=== PATIENT | female | born 1965 | race Caucasian/White ===

== ENCOUNTER 2018-12-03 04:44 | Emergency (ER) | payer SELFPAY ==
[~2018-12-03] VITALS: Ht 162.6 cm; Wt 120.0 kg
[2018-12-03 04:45] VITALS: BP 110/75
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
[2018-12-03] MEDS ORDERED: KETOROLAC 30 MG/1 ML ONE ×2 (05:28→05:40)
[2018-12-03] MEDS ORDERED: KETOROLAC 30 MG/1 ML IM ONE (05:30)
--- NOTE | 2018-12-03 05:46 | NUR ---
PT REFUSED XRAY UNTIL RECIEVED MEDICATION FOR PAIN. PHYSCIAN AWARE. TORADOL 60MG IM ORDERED. PT FIRST ACCEPTED TO RECIEVE MEDICATION. THEN REFUSED MEDICATION BECAUSE IT WAS NOT A PAIN MEDICINE SHE HAD HEARD OF BEFORE. TEACHING ABOUT THE MEDICATION GIVEN BY THIS NURSE AND THE DOCTOR. EXPLAINED TO PT IF SHE REFUSES THE MEDICATION AND THE XRAY THEN SHE WILL BE DISCHARGED. PT THEN AGREED TO RECIEVE MEDICATION.
== END 2018-12-03 06:21 | disposition home or self-care (01) ==
LOC: ED 06:15
DX: S70.01XA Contusion of right hip, initial encounter (principal); W19.XXXA Unspecified fall, initial encounter; Y93.89 Activity, other specified; Y92.521 Bus station as the place of occurrence of the external cause; Y99.8 Other external cause status
CPT/HCPCS: 96372; 99283; J1885

== ENCOUNTER 2019-09-30 08:09 | Inpatient (IN) | payer MEDICAID, OTHER ==
[~2019-09-30] VITALS: Ht 162.6 cm; Wt 99.2 kg
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
--- NOTE | 2019-09-30 08:25 | NUR ---
PT EDUCATED REGARDING NPO STATUS. CALL LIGHT WITHIN REACH OF PT.
[2019-09-30] MEDS ORDERED: SODIUM CHLORIDE FLUSH 10ML SYR IVF ONE (08:30)
[2019-09-30] MEDS ORDERED: SODIUM CHLORIDE 0.9% 1,000ML IVBOLUS ONE (08:30)
--- NOTE | 2019-09-30 08:36 | NUR ---
PT TO IMAGING
--- NOTE | 2019-09-30 08:47 | NUR ---
PT BACK FROM IMAGING.
--- NOTE | 2019-09-30 08:57 | NUR ---
BEDSIDE REPORT TO AILYN GENTILE.
--- NOTE | 2019-09-30 08:59 | NUR ---
report received from AILYN Vega. pt resting on gurney, resps even and unlabored. lab and imaging results pending. this RN to start PIV and IVF.
[2019-09-30 09:08] LABS: BASOPHILS % (AUTO) 0 % (0-1); EOSINOPHILS # (AUTO) 0.41 x10^3/uL (0-0.4); EOSINOPHILS % (AUTO) 5 % (1-7); LYMPHOCYTES # (AUTO) 0.67 x10^3/uL (1-3.4); LYMPHOCYTES % (AUTO) 7 % (22-44); MD NO; MEAN CORPUSCULAR HEMOGLOBIN 29.5 pg (27.0-34.8); MEAN CORPUSCULAR HGB CONC 33.7 g/dL (32.4-35.8); MEAN CORPUSCULAR VOLUME 87.6 fL (80-100); MEAN PLATELET VOLUME 10.1 fL (7.4-10.4); MONOCYTES # (AUTO) 0.12 x10^3/uL (0.2-0.8); MONOCYTES % (AUTO) 1 % (2-9); NEUTROPHILS # (AUTO) 7.93 x10^3/uL (1.8-6.8); NEUTROPHILS % (AUTO) 87 % (42-75); PLATELET COUNT 197 x10^3/uL (130-400); RED BLOOD COUNT 5.26 x10^6/uL (3.82-5.3); RED CELL DISTRIBUTION WIDTH 15.2 % (9.6-15.2)
[2019-09-30 09:12] LABS: ALBUMIN 3.3 g/dL (3.4-5.0); ANION GAP 6 mmol/L (5-15); CALCIUM 8.7 mg/dL (8.5-10.1); CHLORIDE 107 mmol/L (98-107)
[2019-09-30 09:15] LABS: ALANINE AMINOTRANSFERASE 20 U/L (12-78); ALKALINE PHOSPHATASE 95 U/L (45-117); BILIRUBIN,TOTAL 0.8 mg/dL (0.2-1.0); CREATININE 0.63 mg/dL (0.55-1.02); TOTAL PROTEIN 6.8 g/dL (6.4-8.2)
--- NOTE | 2019-09-30 09:19 | NUR ---
PIV placed, IVF infusing. pt c/o headache and generalized abd pain, present for last several days. pt is irritable, requesting multiple times within several minutes for pain medication. pt states "I was just at [facility], you can ask them, theyll tell you to give me pain medication." INES Christian notified of pt's complaints. pt awake, alert, speaking clearly, moving all extremities well. BP and spo2 monitors in place.
[2019-09-30 09:46] LABS: CLOSTRIDIUM DIFFICILE ANTIGEN NEGATIVE; CLOSTRIDIUM DIFFICILE TOXIN NEGATIVE (Negative)
[2019-09-30] MEDS ORDERED: ONDANSETRON 2MG/ML, 2ML IVPush ONE (11:00)
[2019-09-30] MEDS ORDERED: morphine SULFATE 10 MG/ML, 1ML IVPush ONE (11:00)
[2019-09-30] MEDS ORDERED: ONDANSETRON 2MG/ML, 2ML IVPush PRN (11:30)
[2019-09-30] MEDS ORDERED: ACETAMINOPHEN 325 MG TABLET PO PRN (11:30)
[2019-09-30] MEDS ORDERED: GABAPENTIN 300 MG CAPSULE PO PRN (11:30)
[2019-09-30] MEDS ORDERED: KETOROLAC 30 MG/1 ML IV PRN (11:30)
[2019-09-30] MEDS ORDERED: ONDANSETRON ODT 4 MG PO PRN (11:30)
[2019-09-30] MEDS ORDERED: BACLOFEN 10 MG TABLET PO PRN (11:30)
--- NOTE | 2019-09-30 12:00 | NUR ---
THIS RN BACK FROM [facility], PT IS IN CT. AWAITING MEDICAL BED ASSIGNMENT AT THIS TIME, REPORT RECEIVED FROM [facility] CHAMBERS.
--- NOTE | 2019-09-30 13:00 | NUR ---
PT SLEEPING ON GURNEY, RESPS EVEN AND UNLABORED. NADN. MEDS ORDERED FROM HOSPITALIST REQUESTED FROM PHARMACY.
[2019-09-30] MEDS ORDERED: AMLO-150 PO (13:39)
[2019-09-30] MEDS ORDERED: MORPHINE SULFATE 4 MG/ML, 1ML ONE (13:49)
[2019-09-30] MEDS ORDERED: POTASSIUM CHLORIDE 40 MEQ in SODIUM CHLORIDE 0.9% 500 ML IV ONE (14:00)
--- NOTE | 2019-09-30 14:21 | NUR ---
PT MEDICATED PER EMAR, TOLERATED WELL. POTASSIUM CHLORIDE RUNNING AT PRESCRIBED RATE VIA IV PUMP. PT A&OX4, RESPS EVEN AND UNLABORED, C/O 10/10 GENERALIZED ABD PAIN. CALL LIGHT IN REACH, PT ISNTRUCTED TO REMAIN IN BED AND CALL FOR STAFF ASSIST. BED LOCKED AND IN LOWEST POSITION. AWAITING MEDICAL BED ASSIGNMENT AND TRANSPORT.
--- NOTE | 2019-09-30 15:07 | NUR ---
IV maintenance fluid not in ED omnicell, requested from pharmacy.
[2019-09-30] MEDS ORDERED: OMNIPAQUE 350 MG/ML, 100ML BOTTLE ONE (15:09)
--- NOTE | 2019-09-30 15:11 | NUR ---
pt reports pain relieved s/p morphine. pt a&o, resps even and unlabored. nadn at this time. awaiting medical bed assignement and dispo at this time.
--- NOTE | 2019-09-30 15:25 | NUR ---
REPORT RECEIVED, CARE ASSUMED.
--- NOTE | 2019-09-30 15:25 | NUR ---
report given to AILYN Solitario.
--- NOTE | 2019-09-30 16:08 | NUR ---
REPORT CALLED TO [facility] ON MEDICAL FLOOR AND PT PREPARED FOR TRANSPORT.
[2019-09-30 16:51] VITALS: BP 143/97
[2019-09-30] MEDS: morphine SULFATE 10 MG/ML, 1ML IVPush PRN ×2 (17:10→21:19)
[2019-09-30 19:08] VITALS: BP 158/94
[2019-09-30] MEDS: ENOXAPARIN 40 MG/0.4 ML SQ SCH (21:00)
[2019-09-30] MEDS: NICOTINE 21 MG/24 HR PATCH.TD24 TD SCH (21:19)
[2019-09-30] MEDS: D5%-0.45NACL+KCL 20MEQ 1,000 ML IV SCH (23:06)
[2019-10-01] MEDS: morphine SULFATE 10 MG/ML, 1ML IVPush PRN ×5 (02:06→23:20)
[2019-10-01] MEDS: D5%-0.45NACL+KCL 20MEQ 1,000 ML IV SCH ×2 (06:37→19:05)
[2019-10-01 07:56] VITALS: BP 163/92
[2019-10-01] MEDS ORDERED: POTASSIUM CHLORIDE 40 MEQ in SODIUM CHLORIDE 0.9% 500 ML IV ONE (08:00)
[2019-10-01 08:40] LABS: ALANINE AMINOTRANSFERASE 16 U/L (12-78); ALBUMIN 2.8 g/dL (3.4-5.0); ANION GAP 8 mmol/L (5-15); CALCIUM 7.9 mg/dL (8.5-10.1); CHLORIDE 108 mmol/L (98-107); CREATININE 0.48 mg/dL (0.55-1.02)
[2019-10-01 08:50] LABS: ALKALINE PHOSPHATASE 77 U/L (45-117); BILIRUBIN,TOTAL 0.3 mg/dL (0.2-1.0); TOTAL PROTEIN 5.9 g/dL (6.4-8.2)
[2019-10-01 09:12] LABS: BASOPHILS # (AUTO) 0.02 x10^3/uL (0-0.1); BASOPHILS % (AUTO) 1 % (0-1); EOSINOPHILS # (AUTO) 0.29 x10^3/uL (0-0.4); EOSINOPHILS % (AUTO) 8 % (1-7); LYMPHOCYTES # (AUTO) 1.12 x10^3/uL (1-3.4); LYMPHOCYTES % (AUTO) 29 % (22-44); MD SCAN; MEAN CORPUSCULAR HEMOGLOBIN 29.6 pg (27.0-34.8); MEAN CORPUSCULAR HGB CONC 33.7 g/dL (32.4-35.8); MEAN CORPUSCULAR VOLUME 87.8 fL (80-100); MONOCYTES # (AUTO) 0.32 x10^3/uL (0.2-0.8); MONOCYTES % (AUTO) 8 % (2-9); NEUTROPHILS # (AUTO) 2.11 x10^3/uL (1.8-6.8); NEUTROPHILS % (AUTO) 55 % (42-75); PLATELET COUNT 171 x10^3/uL (130-400); RED BLOOD COUNT 4.74 x10^6/uL (3.82-5.3); RED CELL DISTRIBUTION WIDTH 14.9 % (9.6-15.2)
[2019-10-01] MEDS: ENOXAPARIN 40 MG/0.4 ML SQ SCH (10:17)
[2019-10-01] MEDS: AMLODIPINE 5 MG TABLET PO SCH (10:17)
[2019-10-01] MEDS: NICOTINE 21 MG/24 HR PATCH.TD24 TD SCH (10:18)
--- NOTE | 2019-10-01 10:27 | NUR ---
PT/OT D/C DISPO--SNF FOR THERAPIES 5X/WEEK IN ORDER TO RETURN TO [facility]. WILL FOLLOW. Addendum: 10/01/19 at 1027 by Breanne Monae PT Amended: Links added.
[2019-10-01 15:02] VITALS: BP 169/105
[2019-10-01 15:29] VITALS: BP 173/118
[2019-10-01] MEDS: hydrALAzine 20 MG/ML, 1ML IVPush PRN (15:34)
[2019-10-01 18:58] VITALS: BP 160/93
[2019-10-02] VITALS (7 sets, daily range): BP systolic 133–175; BP diastolic 71–108
[2019-10-02] MEDS: D5%-0.45NACL+KCL 20MEQ 1,000 ML IV SCH (04:10)
[2019-10-02 07:57] LABS: ANION GAP 4 mmol/L (5-15); CALCIUM 8.6 mg/dL (8.5-10.1); CHLORIDE 110 mmol/L (98-107); CREATININE 0.47 mg/dL (0.55-1.02)
[2019-10-02] MEDS: AMLODIPINE 5 MG TABLET PO SCH (07:57)
[2019-10-02] MEDS: NICOTINE 21 MG/24 HR PATCH.TD24 TD SCH (07:58)
[2019-10-02] MEDS: morphine SULFATE 10 MG/ML, 1ML IVPush PRN ×2 (07:59→11:48)
[2019-10-02] MEDS: ENOXAPARIN 40 MG/0.4 ML SQ SCH (08:58)
[2019-10-02] MEDS: hydrALAzine 20 MG/ML, 1ML IVPush PRN (09:06)
[2019-10-02] MEDS: OXYcodone IR 5MG TABLET PO PRN (17:59)
[2019-10-03 00:40] VITALS: BP 147/93
[2019-10-03 07:49] VITALS: BP 170/84
[2019-10-03] MEDS: NICOTINE 21 MG/24 HR PATCH.TD24 TD SCH (08:55)
[2019-10-03] MEDS: ENOXAPARIN 40 MG/0.4 ML SQ SCH ×2 (08:56→08:57)
[2019-10-03] MEDS ORDERED: AMLODIPINE 10 MG TAB PO SCH (09:00)
[2019-10-03] MEDS: OXYcodone IR 5MG TABLET PO PRN (09:00)
[2019-10-03 09:06] VITALS: BP 147/108
[2019-10-03] MEDS ORDERED: AMLO10TA8 PO (09:09)
[2019-10-03 09:35] VITALS: BP 146/101
[2019-10-05] MEDS ORDERED: IBUPROFEN 600 MG TABLET PO PRN (17:00)
== END 2019-10-03 12:50 | disposition home or self-care (01) | DRG 390 ==
LOC: SUATTDRO 11:02 → ED 11:06 → EDIP 11:15 → 3N 16:42 → DCLOUNGE 10-03 12:41
PROVIDERS: ADMIT Hospitalist; ATTEND Hospitalist
DX: K56.7 Ileus, unspecified (principal); E86.0 Dehydration; F17.210 Nicotine dependence, cigarettes, uncomplicated; I10 Essential (primary) hypertension; Z79.899 Other long term (current) drug therapy; Z90.49 Acquired absence of other specified parts of digestive tract
CPT/HCPCS: 36415; 74021; 74177; 80048; 80053; 83605; 83690; 83735; 84443; 85025; 87324; 89055; 99285; G0378; J1650; J3480; Q9967; J0360; J2270; J7030; J7040

== ENCOUNTER 2020-03-07 09:00 | Emergency (ER) | payer MEDICAID ==
[~2020-03-07] VITALS: Ht 162.6 cm; Wt 101.3 kg
[~2020-03-07 09:00] MED LIST: AMLO-150 PO; AMLO10TA8 PO
[2020-03-07 09:10] VITALS: BP 148/99
[2020-03-07] MEDS ORDERED: MORPHINE SULFATE 4 MG/ML, 1ML IVPush PRN (09:30)
[2020-03-07] MEDS ORDERED: SODIUM CHLORIDE FLUSH 10ML SYR IVF ONE (09:30)
[2020-03-07] MEDS ORDERED: SODIUM CHLORIDE 0.9% 1,000ML IVBOLUS ONE (09:30)
[2020-03-07] MEDS ORDERED: ONDANSETRON 2MG/ML, 2ML IVPush ONE (09:30)
[2020-03-07] MEDS ORDERED: MORPHINE SULFATE 4 MG/ML, 1ML ONE (10:01)
[2020-03-07] MEDS ORDERED: ONDANSETRON 2MG/ML, 2ML ONE (10:01)
[2020-03-07 10:15] LABS: BASOPHILS # (AUTO) 0.03 x10^3/uL (0-0.1); BASOPHILS % (AUTO) 0 % (0-1); EOSINOPHILS # (AUTO) 0.12 x10^3/uL (0-0.4); EOSINOPHILS % (AUTO) 1 % (1-7); LYMPHOCYTES # (AUTO) 1.34 x10^3/uL (1-3.4); LYMPHOCYTES % (AUTO) 16 % (22-44); MD NO; MEAN CORPUSCULAR HEMOGLOBIN 29.8 pg (27.0-34.8); MEAN CORPUSCULAR HGB CONC 32.7 g/dL (32.4-35.8); MEAN CORPUSCULAR VOLUME 91.3 fL (80-100); MEAN PLATELET VOLUME 9.7 fL (7.4-10.4); MONOCYTES % (AUTO) 5 % (2-9); NEUTROPHILS # (AUTO) 6.61 x10^3/uL (1.8-6.8); NEUTROPHILS % (AUTO) 78 % (42-75); PLATELET COUNT 255 x10^3/uL (130-400); RED BLOOD COUNT 5.28 x10^6/uL (3.82-5.3); RED CELL DISTRIBUTION WIDTH 13.8 % (9.6-15.2)
[2020-03-07 10:27] LABS: ALANINE AMINOTRANSFERASE 19 U/L (12-78); ALBUMIN 3.8 g/dL (3.4-5.0); ANION GAP 6 mmol/L (5-15); CALCIUM 9.2 mg/dL (8.5-10.1); CHLORIDE 111 mmol/L (98-107)
[2020-03-07 10:29] LABS: ALKALINE PHOSPHATASE 93 U/L (45-117); BILIRUBIN,TOTAL 0.2 mg/dL (0.2-1.0); TOTAL PROTEIN 7.4 g/dL (6.4-8.2)
== END 2020-03-07 12:24 | disposition home or self-care (01) ==
LOC: ED 10:25
DX: R10.84 Generalized abdominal pain (principal); R19.7 Diarrhea, unspecified; R11.0 Nausea; F17.200 Nicotine dependence, unspecified, uncomplicated; I10 Essential (primary) hypertension
CPT/HCPCS: 36415; 74022; 80053; 83690; 85025; 96361; 96374; 96375; 99284; J2270; J2405; J7030

== ENCOUNTER 2020-03-08 09:41 | Inpatient (IN) | payer MEDICAID ==
[~2020-03-08] VITALS: Ht 162.6 cm; Wt 111.9 kg
--- NOTE | 2020-03-08 10:09 | NUR ---
FIRST CONTACT WITH PT. PT HERE YESTERDAY FOR ABD PAIN, BEGAN VOMITING SINCE LEAVING YESTERDAY. PT C/O ABD PAIN WITH N/V/D/VOGT. PT'S AOX4. RESPS EVEN AND UNLABORED. BP/SPO2 MONITORS IN PLACE. CALL LIGHT WITHIN REACH.
--- NOTE | 2020-03-08 10:10 | NUR ---
PT AMB TO BR WITH STEADY GAIT. URINE CUP GIVEN.
[2020-03-08] MEDS ORDERED: METOCLOPRAMIDE 5 MG/ML, 2ML ONE (10:15)
[2020-03-08] MEDS ORDERED: MORPHINE SULFATE 4 MG/ML, 1ML ONE ×2 (10:16→14:53)
--- NOTE | 2020-03-08 10:20 | NUR ---
pt is not able to provide urine sample at this time. pt stated "i'll try it later"
[2020-03-08] MEDS ORDERED: METOCLOPRAMIDE 5 MG/ML, 2ML IVPush ONE (10:30)
[2020-03-08] MEDS ORDERED: SODIUM CHLORIDE FLUSH 10ML SYR IVF ONE (10:30)
[2020-03-08] MEDS ORDERED: SODIUM CHLORIDE 0.9% 1,000ML IVBOLUS ONE (10:30)
[2020-03-08] MEDS: MORPHINE SULFATE 4 MG/ML, 1ML IVPush PRN ×2 (10:38→15:00)
[2020-03-08 10:48] LABS: BASOPHILS # (AUTO) 0.01 x10^3/uL (0-0.1); BASOPHILS % (AUTO) 0 % (0-1); EOSINOPHILS # (AUTO) 0.09 x10^3/uL (0-0.4); EOSINOPHILS % (AUTO) 1 % (1-7); LYMPHOCYTES # (AUTO) 0.83 x10^3/uL (1-3.4); LYMPHOCYTES % (AUTO) 13 % (22-44); MD NO; MEAN CORPUSCULAR HEMOGLOBIN 29.9 pg (27.0-34.8); MEAN CORPUSCULAR HGB CONC 33.1 g/dL (32.4-35.8); MEAN CORPUSCULAR VOLUME 90.4 fL (80-100); MEAN PLATELET VOLUME 9.7 fL (7.4-10.4); MONOCYTES % (AUTO) 2 % (2-9); NEUTROPHILS # (AUTO) 5.63 x10^3/uL (1.8-6.8); NEUTROPHILS % (AUTO) 85 % (42-75); PLATELET COUNT 245 x10^3/uL (130-400); RED BLOOD COUNT 4.74 x10^6/uL (3.82-5.3); RED CELL DISTRIBUTION WIDTH 14.1 % (9.6-15.2)
[2020-03-08 10:54] LABS: ALBUMIN 3.6 g/dL (3.4-5.0); ANION GAP 4 mmol/L (5-15); CALCIUM 9.1 mg/dL (8.5-10.1); CHLORIDE 111 mmol/L (98-107)
--- NOTE | 2020-03-08 10:55 | NUR ---
PT IN CT AT THIS TIME.
[2020-03-08 11:01] LABS: ALANINE AMINOTRANSFERASE 19 U/L (12-78); ALKALINE PHOSPHATASE 114 U/L (45-117); BILIRUBIN,TOTAL 0.2 mg/dL (0.2-1.0); CREATININE 0.61 mg/dL (0.55-1.02); TOTAL PROTEIN 7.1 g/dL (6.4-8.2)
[2020-03-08] MEDS ORDERED: OMNIPAQUE 350 MG/ML, 100ML BOTTLE ONE (11:06)
--- NOTE | 2020-03-08 11:29 | NUR ---
PT USED BEDSIDE COMODE AND URINATED IN HAT. URINE COLLECTED AND UA SENT AT THIS TIME.
[2020-03-08 11:49] LABS: MICROSCOPIC AUTO
[2020-03-08 11:50] LABS: HCG UR SG > 1.045 (1.003-1.030)
--- NOTE | 2020-03-08 12:16 | NUR ---
PT SLEEPING IN [facility]. RESPS EVEN AND UNLABORED. BP/SPO2 MONITORS IN PLACE. CALL LIGHT WITHIN REACH.
--- NOTE | 2020-03-08 12:35 | NUR ---
pt resting on gurney, resps even and unlabored. IVF infused. pt assisted to BSC to void. nadn. all diagnostics complete, chart up for recheck, awaiting MD and dispo.
--- NOTE | 2020-03-08 12:44 | NUR ---
pt back in bed, pt a&o, resps even and unlabored. bp and spo2 monitors reattached. call light in reach. med rec completed for admit.
--- NOTE | 2020-03-08 13:23 | NUR ---
PT SLEEPING IN [facility]. RESPS EVEN AND UNLABORED. BP/SPO2 MONITORS IN PLACE. CALL LIGHT WITHIN REACH.
--- NOTE | 2020-03-08 14:22 | NUR ---
PT RESTING IN [facility]. PT'S AOX4. RESPS EVEN AND UNLABORED. BP/SPO2 MONITORS IN PLACE. CALL LIGHT WITHIN REACH.
--- NOTE | 2020-03-08 14:50 | NUR ---
PT USED BEDSIDE COMODE TO URINATE AT THIS TIME. PT STTING ON GURNEY. PT'S AOX4. RESPS EVEN AND UNLABORED.
[2020-03-08] MEDS: SODIUM CHLORIDE 0.9% 1,000 ML IV SCH ×2 (14:59→22:47)
[2020-03-08] MEDS ORDERED: ONDANSETRON 2MG/ML, 2ML IVPush PRN (15:00)
[2020-03-08] MEDS ORDERED: hydrALAzine 20 MG/ML, 1ML IVPush PRN (15:00)
--- NOTE | 2020-03-08 15:05 | NUR ---
PT MEDICATED FOR 10 ABD PAIN. PT ALSO C/O VOGT. NS INFUSING AT 125CC/HR. PULSE OX IN PLACE, CALL LIGHT WITHIN REACH. WARM BLANKET PROVIDED.
[2020-03-08] MEDS ORDERED: NICOTINE 14MG/24 HR PATCH.TD24 ONE (15:37)
[2020-03-08] MEDS: NICOTINE 14MG/24 HR PATCH.TD24 TD SCH (15:38)
--- NOTE | 2020-03-08 15:40 | NUR ---
NICOTINE PATCH APPLIED ON R ARM.
--- NOTE | 2020-03-08 15:44 | NUR ---
REPORT GIVEN TO GARIMA ROBERTSON. ALL QUESTIONS ANSWERED.
[2020-03-08 16:27] VITALS: BP 148/86
[2020-03-08] MEDS: morphine SULFATE 10 MG/ML, 1ML IVPush PRN (19:49)
[2020-03-08] MEDS: FAMOTIDINE 20 MG/2 ML IVPush SCH (19:49)
[2020-03-08 20:37] VITALS: BP 167/94
[2020-03-09] MEDS: morphine SULFATE 10 MG/ML, 1ML IVPush PRN ×4 (00:27→15:22)
[2020-03-09] MEDS: ACETAMINOPHEN 325 MG TABLET PO PRN ×4 (00:28→19:54)
[2020-03-09 00:36] VITALS: BP 156/89
[2020-03-09] MEDS: SODIUM CHLORIDE 0.9% 1,000 ML IV SCH (06:34)
[2020-03-09 07:06] VITALS: BP 154/89
[2020-03-09] MEDS: BISACODYL 10 MG SUPP PR SCH (09:00)
[2020-03-09 09:29] LABS: BASOPHILS # (AUTO) 0.04 x10^3/uL (0-0.1); BASOPHILS % (AUTO) 1 % (0-1); EOSINOPHILS # (AUTO) 0.22 x10^3/uL (0-0.4); EOSINOPHILS % (AUTO) 3 % (1-7); LYMPHOCYTES # (AUTO) 1.85 x10^3/uL (1-3.4); LYMPHOCYTES % (AUTO) 28 % (22-44); MD NO; MEAN CORPUSCULAR HEMOGLOBIN 29.7 pg (27.0-34.8); MEAN CORPUSCULAR HGB CONC 32.4 g/dL (32.4-35.8); MEAN CORPUSCULAR VOLUME 91.5 fL (80-100); MEAN PLATELET VOLUME 9.2 fL (7.4-10.4); MONOCYTES # (AUTO) 0.35 x10^3/uL (0.2-0.8); MONOCYTES % (AUTO) 5 % (2-9); NEUTROPHILS # (AUTO) 4.13 x10^3/uL (1.8-6.8); NEUTROPHILS % (AUTO) 63 % (42-75); PLATELET COUNT 234 x10^3/uL (130-400); RED BLOOD COUNT 4.68 x10^6/uL (3.82-5.3); RED CELL DISTRIBUTION WIDTH 13.9 % (9.6-15.2)
[2020-03-09 09:35] LABS: ALANINE AMINOTRANSFERASE 18 U/L (12-78); ALBUMIN 3.4 g/dL (3.4-5.0); ANION GAP 5 mmol/L (5-15); CALCIUM 8.5 mg/dL (8.5-10.1); CHLORIDE 109 mmol/L (98-107); CREATININE 0.43 mg/dL (0.55-1.02)
[2020-03-09 09:40] LABS: ALKALINE PHOSPHATASE 75 U/L (45-117); BILIRUBIN,TOTAL 0.3 mg/dL (0.2-1.0); CHOLESTEROL, TOTAL 214 mg/dL (140-239); HDL CHOL % 25 % (28-40); HDL CHOLESTEROL (DIRECT) 54 mg/dL (40-60); LDL CHOLESTEROL,CALCULATED 88 mg/dL (54-169); LDL/HDL RATIO 1.6 (0.5-3.0); TOTAL PROTEIN 6.7 g/dL (6.4-8.2); TRIGLYCERIDES 362 mg/dL (50-200); VLDL CHOLESTEROL 72 mg/dL (0-25)
[2020-03-09] MEDS: HEPARIN 5,000 UNITS/ML, 1ML SQ SCH ×2 (10:33→18:29)
[2020-03-09] MEDS: FAMOTIDINE 20 MG/2 ML IVPush SCH ×2 (10:34→21:44)
[2020-03-09] MEDS: AMLODIPINE 10 MG TAB PO SCH (10:34)
[2020-03-09] MEDS: NICOTINE 14MG/24 HR PATCH.TD24 TD SCH (10:36)
[2020-03-09 12:40] VITALS: BP 158/100
[2020-03-09] MEDS ORDERED: SODIUM CHLORIDE 0.9% 1,000 ML IV SCH (14:36)
[2020-03-09] MEDS ORDERED: OXYcodone 5 MG/5 ML ORAL.SOL UDC PO PRN (18:30)
[2020-03-09] MEDS: OXYcodone IR 5MG TABLET PO PRN (18:30)
[2020-03-09 19:14] VITALS: BP 151/102
[2020-03-10 00:03] VITALS: BP 177/77
[2020-03-10] MEDS: HEPARIN 5,000 UNITS/ML, 1ML SQ SCH ×3 (02:00→17:20)
[2020-03-10] MEDS: OXYcodone IR 5MG TABLET PO PRN ×4 (02:04→22:14)
[2020-03-10] MEDS: ACETAMINOPHEN 325 MG TABLET PO PRN ×2 (02:05→08:15)
[2020-03-10] MEDS ORDERED: POTASSIUM CHLORIDE 20 MEQ TAB.ER.PRT PO ONE (08:00)
[2020-03-10] MEDS: FAMOTIDINE 20 MG/2 ML IVPush SCH (08:15)
[2020-03-10] MEDS: LISINOPRIL 20 MG TABLET PO SCH (08:16)
[2020-03-10 08:17] LABS: ANION GAP 6 mmol/L (5-15); CALCIUM 8.9 mg/dL (8.5-10.1); CHLORIDE 106 mmol/L (98-107)
[2020-03-10] MEDS: AMLODIPINE 10 MG TAB PO SCH (08:17)
[2020-03-10 08:18] LABS: CREATININE 0.52 mg/dL (0.55-1.02)
[2020-03-10] MEDS: BISACODYL 10 MG SUPP PR SCH (09:00)
[2020-03-10 09:14] VITALS: BP 130/89
[2020-03-10] MEDS: NICOTINE 14MG/24 HR PATCH.TD24 TD SCH (11:30)
[2020-03-10] MEDS ORDERED: NICO-486 TD (13:02)
[2020-03-10] MEDS ORDERED: ACET325T26 PO (13:02)
[2020-03-10] MEDS ORDERED: LISI-170 PO (13:02)
[2020-03-10] MEDS ORDERED: SODIUM CHLORIDE 0.9% 1,000 ML IV SCH (14:36)
[2020-03-10 15:53] VITALS: BP 130/87
[2020-03-10 19:12] VITALS: BP 132/87
[2020-03-10] MEDS: FAMOTIDINE 20 MG TABLET PO SCH (22:14)
[2020-03-11] MEDS: HEPARIN 5,000 UNITS/ML, 1ML SQ SCH ×2 (02:00→10:00)
[2020-03-11 07:44] VITALS: BP 163/89
[2020-03-11 08:28] LABS: ANION GAP 6 mmol/L (5-15); CALCIUM 9.7 mg/dL (8.5-10.1); CHLORIDE 110 mmol/L (98-107); CREATININE 0.62 mg/dL (0.55-1.02)
[2020-03-11] MEDS: BISACODYL 10 MG SUPP PR SCH (08:31)
[2020-03-11] MEDS: AMLODIPINE 10 MG TAB PO SCH (08:32)
[2020-03-11] MEDS: LISINOPRIL 20 MG TABLET PO SCH (08:32)
[2020-03-11] MEDS: FAMOTIDINE 20 MG TABLET PO SCH (08:33)
[2020-03-11] MEDS: ACETAMINOPHEN 325 MG TABLET PO PRN (08:44)
[2020-03-11] MEDS ORDERED: LACTOBACILLUS CHEW TABLET PO SCH (09:00)
[2020-03-11] MEDS: NICOTINE 14MG/24 HR PATCH.TD24 TD SCH (10:24)
[2020-03-11] MEDS ORDERED: OXYcodone IR 5MG TABLET PO PRN (12:30)
[2020-03-11 13:03] VITALS: BP 117/78
== END 2020-03-11 14:44 | disposition home or self-care (01) | DRG 389 ==
LOC: ED 10:27 → EDIP 13:11 → 3N 16:10
PROVIDERS: ADMIT Family Medicine; ATTEND Internal Medicine
DX: K56.51 Intestinal adhesions [bands], with partial obstruction (principal); Z68.41 Body mass index [BMI] 40.0-44.9, adult; E66.01 Morbid (severe) obesity due to excess calories; K52.9 Noninfective gastroenteritis and colitis, unspecified; I10 Essential (primary) hypertension; G89.29 Other chronic pain; G47.00 Insomnia, unspecified; K80.20 Calculus of gallbladder without cholecystitis without obstruction; F17.210 Nicotine dependence, cigarettes, uncomplicated; Z79.899 Other long term (current) drug therapy
CPT/HCPCS: 36415; 74018; 96360; 96361; 99285; J3490; 74177; 80048; 80053; 80061; 81001; 81025; 83036; 83690; 83735; 84100; 84443; 85025; 93005; G0378; J1644; Q9967; J0360; J2270; J2765; J7030

== ENCOUNTER 2020-03-24 08:03 | Emergency (ER) | payer MEDICAID ==
[~2020-03-24] VITALS: Ht 162.6 cm; Wt 100.0 kg
[~2020-03-24 08:03] MED LIST changes: +ACET325T26 PO; +LISI-170 PO; +NICO-486 TD
[2020-03-24 08:14] VITALS: BP 156/93
--- NOTE | 2020-03-24 08:20 | NUR ---
PT YESENIA MORENO, PT WITH REPORTS OF HTN. PT OUT OF MEDICATION PER HER REPORT FOR 4 DAYS. PT SEEN AT [facility] YESTERDAY FOR SAME COMPLAINT, WAS GIVEN SCRIPTS. PER EMS PT BECAME AGITATED WHEN ASKED WHY SHE DID NOT FILL MEDICATIONS, PT STATES "I WANT TO PICK MY OWN DOCTOR, IM NOT JUST GOING TO TAKE WHATS THROWN AT ME." PT BP 156/93 ON ARRIVAL, C/O VOGT, NO CP. NAD NOTED.
[2020-03-24] MEDS ORDERED: AMLODIPINE 10 MG TAB PO ONE (08:30)
[2020-03-24] MEDS ORDERED: LISINOPRIL 10 MG TABLET PO ONE (08:30)
[2020-03-24] MEDS ORDERED: AMLODIPINE 5 MG TABLET ONE (08:38)
[2020-03-24] MEDS ORDERED: LISINOPRIL 10 MG TABLET ONE (08:38)
--- NOTE | 2020-03-24 08:56 | NUR ---
PT MEDICATED PER SEP, PLAN TO DC
== END 2020-03-24 10:49 | disposition home or self-care (01) ==
LOC: ED 08:45
DX: I10 Essential (primary) hypertension (principal); R51 Headache; Z76.0 Encounter for issue of repeat prescription
CPT/HCPCS: 99283

== ENCOUNTER 2020-04-23 01:08 | Emergency (ER) | payer MEDICAID ==
[~2020-04-23] VITALS: Ht 162.6 cm; Wt 100.0 kg
[2020-04-23 01:10] VITALS: BP 106/66
[2020-04-23] MEDS ORDERED: IBUPROFEN 600 MG TABLET PO ONE (01:30)
--- NOTE | 2020-04-23 02:03 | NUR ---
REport given to AILYN West. Patient care transferred.
--- NOTE | 2020-04-23 02:13 | NUR ---
BEDSIDE REPORT FROM LANETTE ROBERTSON, PT CARE TRANSFERRED AT THIS TIME. PT NAD RESTING ON EMELIA ALAS.
--- NOTE | 2020-04-23 02:15 | NUR ---
left knee exam incomplete: pt uncoopertive. She stated she was in too much pain all over body to hold still for exam. pt was full self range of motion at start of exam then stated she had no range of motion, yet she was unable to stop self movement long enough to complete exam. pt taken back to room per request.
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
--- NOTE | 2020-04-23 02:21 | NUR ---
JANINA RAYMOND AT BS WITH PT
--- NOTE | 2020-04-23 02:40 | NUR ---
pt continuously calling 911 stating "i want to go to another hospital, i dont want to be here anymore." MD aware, states pt does not need to wait for rad results. Pt escorted off property by security due continually being verbally aggressive towards staff.
== END 2020-04-23 02:44 | disposition home or self-care (01) ==
LOC: ED 01:27
DX: G89.11 Acute pain due to trauma (principal); M25.512 Pain in left shoulder; M25.562 Pain in left knee; G89.29 Other chronic pain; M25.551 Pain in right hip; I10 Essential (primary) hypertension; F17.210 Nicotine dependence, cigarettes, uncomplicated; Y08.89XA Assault by other specified means, initial encounter; Y93.89 Activity, other specified; Y92.481 Parking lot as the place of occurrence of the external cause; Y99.8 Other external cause status
CPT/HCPCS: 99284; 99406

== ENCOUNTER 2020-11-26 17:35 | Emergency (ER) | payer MEDICAID ==
[~2020-11-26] VITALS: Ht 157.5 cm; Wt 105.0 kg
[~2020-11-26 17:35] MED LIST changes: +AMLO-211 PO; -AMLO10TA8 PO
[2020-11-26 17:42] VITALS: BP 126/82
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
--- NOTE | 2020-11-26 18:20 | NUR ---
PT BACK FROM CT SCAN.
== END 2020-11-26 19:45 | disposition home or self-care (01) ==
LOC: ED 18:51
DX: S00.93XA Contusion of unspecified part of head, initial encounter (principal); I10 Essential (primary) hypertension; R94.31 Abnormal electrocardiogram [ECG] [EKG]; F17.200 Nicotine dependence, unspecified, uncomplicated; X58.XXXA Exposure to other specified factors, initial encounter; Y93.89 Activity, other specified; Y92.89 Other specified places as the place of occurrence of the external cause; Y99.8 Other external cause status
CPT/HCPCS: 70450; 93005; 99284

== ENCOUNTER 2021-03-04 23:11 | Emergency (ER) | payer MEDICAID ==
[~2021-03-04] VITALS: Ht 162.6 cm; Wt 95.0 kg
[2021-03-04] MEDS ORDERED: ONDANSETRON 2MG/ML, 2ML ONE (23:25)
[2021-03-04] MEDS ORDERED: MORPHINE SULFATE 4 MG/ML, 1ML ONE (23:25)
[2021-03-04] MEDS: MORPHINE SULFATE 4 MG/ML, 1ML IVPush PRN (23:28)
[2021-03-04] MEDS ORDERED: ONDANSETRON 2MG/ML, 2ML IVPush ONE (23:30)
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
[2021-03-04 23:49] LABS: BASOPHILS % (AUTO) 1 % (0-1); EOSINOPHILS % (AUTO) 3 % (1-7); LYMPHOCYTES % (AUTO) 25 % (22-44); MEAN CORPUSCULAR HEMOGLOBIN 29.1 pg (27.0-34.8); MEAN CORPUSCULAR HGB CONC 33.4 g/dL (32.4-35.8); MEAN PLATELET VOLUME 9.9 fL (7.4-10.4); MONOCYTES % (AUTO) 8 % (2-9); NEUTROPHILS % (AUTO) 62 % (42-75); PLATELET COUNT 198 x10^3/uL (130-400); RED BLOOD COUNT 4.58 x10^6/uL (3.82-5.3); RED CELL DISTRIBUTION WIDTH 14.4 % (9.6-15.2)
[2021-03-04 23:58] LABS: ALBUMIN 3.4 g/dL (3.4-5.0); ANION GAP 5 mmol/L (5-15); CALCIUM 8.6 mg/dL (8.5-10.1); CHLORIDE 109 mmol/L (98-107); CREATININE 0.86 mg/dL (0.55-1.02)
[2021-03-05] MEDS ORDERED: MORPHINE SULFATE 4 MG/ML, 1ML ONE (00:53)
[2021-03-05] MEDS: MORPHINE SULFATE 4 MG/ML, 1ML IVPush PRN (01:00)
--- NOTE | 2021-03-05 01:27 | NUR ---
PT. STATES PAIN REMAINS 10/10 DESPITE 2 DOSES OF MORPHINE. HOWEVER, PT. VERY FIDGETY IN BED AND EATING CRACKERS. AWAITING PROVIVER RECHECK.
[2021-03-05] MEDS ORDERED: LIDODERM 5% PATCH TD ONE ×2 (02:11→02:30)
[2021-03-05 02:51] VITALS: BP 111/72
== END 2021-03-05 02:52 ==
LOC: ED 23:41
DX: S39.012A Strain of muscle, fascia and tendon of lower back, initial encounter (principal); S30.0XXA Contusion of lower back and pelvis, initial encounter; I10 Essential (primary) hypertension; F17.210 Nicotine dependence, cigarettes, uncomplicated; W10.9XXA Fall (on) (from) unspecified stairs and steps, initial encounter; Y93.89 Activity, other specified; Y92.009 Unspecified place in unspecified non-institutional (private) residence as the place of occurrence of the external cause; Y99.8 Other external cause status
CPT/HCPCS: 36415; 72131; 72192; 80048; 82040; 85025; 96374; 96375; 96376; 99285; 99406; J2270; J2405